=== PATIENT | male | born 1950 | race African-American/Black ===

== ENCOUNTER 2018-06-01 12:57 | Emergency (ER) | payer MEDICARE, OTHER ==
--- NOTE | 2018-06-01 14:19 | ER Document Report ---
ED Medical Screen (RME) - General Chief Complaint: Nose Bleed Stated Complaint: NOSE BLEED Time Seen by Provider: 06/01/18 14:17 Primary Care Provider: CANDACE DE LA CRUZ MD [Primary Care Provider] - Follow up as needed Mode of Arrival: Ambulatory Information source: Patient Notes: 68-year-old male presented to ED for complaint of nosebleed. He states he has had a nosebleed off and on for about 6-8 months but this time it would not stop bleeding on its own. He states he went to his doctor's office for routine physical and they could not get his nosebleeds to stop so they packed his nose and sending to the emergency room. He does have packing in his nose at this point and I did not remove it as I am doing him in the old EKG room trying to triage him. I have ordered some blood work and will have him seen by another provider. He is alert oriented respirations regular and unlabored speaking in full sentences. He denies use of any kind of blood thinners or aspirin. I have greeted and performed a rapid initial assessment of this patient. A comprehensive ED assessment and evaluation of the patient, analysis of test results and completion of medical decision making process will be conducted by an additional ED providers. TRAVEL OUTSIDE OF THE [place] IN LAST 30 DAYS: No - Related Data Allergies/Adverse Reactions: No Known Allergies Allergy (Verified 06/01/18 12:59) Past Medical History - Past Medical History Cardiac Medical History: Reports: Hx Hypercholesterolemia, Hx Hypertension Denies: Hx Coronary Artery Disease, Hx Heart Attack Pulmonary Medical History: Denies: Hx Asthma, Hx Bronchitis, Hx COPD, Hx Pneumonia, Hx Tuberculosis Neurological Medical History: Denies: Hx Cerebrovascular Accident, Hx Seizures Endocrine Medical History: Reports: Hx Diabetes Mellitus Type 2 Musculoskeltal Medical History: Reports Hx Arthritis - Immunizations Hx Diphtheria, Pertussis, Tetanus Vaccination: No Physical Exam - Vital signs Vitals: Temp Pulse Resp BP Pulse Ox 97.8 F 74 14 138/74 H 97 06/01/18 13:08 06/01/18 13:08 06/01/18 13:08 06/01/18 13:08 06/01/18 13:08 Course - Vital Signs Vital signs: Temp Pulse Resp BP Pulse Ox 97.8 F 74 14 138/74 H 97 06/01/18 13:08 06/01/18 13:08 06/01/18 13:08 06/01/18 13:08 06/01/18 13:08 Doctor's Discharge - Discharge Referrals: CANDACE DE LA CRUZ MD [Primary Care Provider] - Follow up as needed
[2018-06-01 15:00] LABS: ABSOLUTE EOSINOPHILS # (AUTO) 0.1 10^3/uL (0.0-0.6); ABSOLUTE LYMPHOCYTES (AUTO) 2.5 10^3/uL (0.5-4.7); ABSOLUTE MONOCYTES (AUTO) 0.4 10^3/uL (0.1-1.4); ABSOLUTE NEUT (AUTO) 4.3 10^3/uL (1.7-8.2); BASOPHILS % (AUTO) 0.6 % (0-2); EOSINOPHILS % (AUTO) 0.8 % (0-6); HEMATOCRIT 40.6 % (37.9-51.0); HEMOGLOBIN 13.1 g/dL (13.5-17.0); LYMPHOCYTES % (AUTO) 34.3 % (13-45); MEAN CORPUSCULAR HEMOGLOBIN 24.1 pg (27.0-33.4); MEAN CORPUSCULAR HGB CONC 32.2 g/dL (32.0-36.0); MEAN CORPUSCULAR VOLUME 75 fl (80-97); MONOCYTES % (AUTO) 5.9 % (3-13); PLATELET COUNT 162 10^3/uL (150-450); RED BLOOD COUNT 5.43 10^6/uL (4.35-5.55); RED CELL DISTRIBUTION WIDTH 15.7 % (11.5-14.0); SEGMENTED NEUTROPHILS % (AUTO) 58.4 % (42-78); TOTAL CELLS COUNTED % (AUTO) 100 %; WHITE BLOOD COUNT 7.4 10^3/uL (4.0-10.5)
[2018-06-01 15:12] LABS: INTERNATIONAL RATION (INR) 0.96; PROTHROMBIN TIME 13.3 SEC (11.4-15.4)
[2018-06-01 15:13] LABS: PARTIAL THROMBOPLASTIN TIME 26.9 SEC (23.5-35.8)
--- NOTE | 2018-06-01 17:24 | ER Document Report ---
ED General - General Chief Complaint: Nose Bleed Stated Complaint: NOSE BLEED Time Seen by Provider: 06/01/18 14:17 Primary Care Provider: CANDACE DE LA CRUZ MD [Primary Care Provider] - Follow up as needed Mode of Arrival: Ambulatory Information source: Patient TRAVEL OUTSIDE OF THE [place] IN LAST 30 DAYS: No - HPI Patient complains to provider of: Intermittent right nostril bleeding Onset: Just prior to arrival Onset/Duration: Sudden Quality of pain: No pain Severity: None Associated symptoms: None Exacerbated by: Denies Relieved by: Denies Similar symptoms previously: No Recently seen / treated by doctor: No Notes: 68-year-old -[place] male coming in today with right-sided nosebleed. He was at his primary care doctor's office today and sneezed and developed bl eeding from his right nostril. He has had intermittent right nostril bleeds for the past several months. He relates a history of having scratched it really hard with 1 of his fingernails in the past and ever since then he has been having recurrent bleeds. Apparently, the bleeding did not stop right away so the doctor packed it and told him to come straight to the emergency department. By the time the patient is being evaluated, he has since removed the packing from his right nostril is not having any bleeding. His blood count is also back and is unremarkable. - Related Data Allergies/Adverse Reactions: No Known Allergies Allergy (Verified 06/01/18 12:59) Past Medical History - General Information source: Patient - Social History Smoking Status: Current Every Day Smoker Chew tobacco use (# tins/day): No Frequency of alcohol use: Rare Drug Abuse: None Family History: Reviewed & Not Pertinent, DM - Mother Patient has suicidal ideation: No Patient has homicidal ideation: No - Past Medical History Cardiac Medical History: Reports: Hx Hypercholesterolemia, Hx Hypertension Denies: Hx Coronary Artery Disease, Hx Heart Attack Pulmonary Medical History: Denies: Hx Asthma, Hx Bronchitis, Hx COPD, Hx Pneumonia, Hx Tuberculosis Neurological Medical History: Reports: Hx Seizures. Denies: Hx Cerebrovascular Accident Endocrine Medical History: Reports: Hx Diabetes Mellitus Type 2 Renal/ Medical History: Reports: Hx Peritoneal Dialysis Musculoskeletal Medical History: Reports Hx Arthritis - Immunizations Hx Diphtheria, Pertussis, Tetanus Vaccination: No Review of Systems - Review of Systems Notes: Constitutional: No fevers. No chills. EENT: No eye redness. No eye pain. No ear pain. No sore throat. Positive for recent epistaxis right nostril Cardiovascular: No chest pain. No palpitations. Respiratory: No cough. No shortness of breath. No respiratory distress. Gastrointestinal: No abdominal pain. No nausea, vomiting, or diarrhea. Genitourinary: Atraumatic. No lesions. No pain. No discharge. Musculoskeletal: Atraumatic. No swelling. No deformities. Skin: No rash or lesions. Lymphatic: No swollen lymph nodes. Neurologic: No headache. No syncope. Psychiatric: No suicidal or homicidal ideation. Physical Exam - Vital signs Vitals: Temp Pulse Resp BP Pulse Ox 97.8 F 74 14 138/74 H 97 06/01/18 13:08 06/01/18 13:08 06/01/18 13:08 06/01/18 13:08 06/01/18 13:08 - Notes Notes: General: Well-developed, well-nourished. In no acute distress. Non-toxic appea ring. Cardiac: Well-perfused. Regular rate and rhythm. No murmurs, rubs, or gallops. Pulmonary: No respiratory distress. No cyanosis. Bilateral lung fiels are clear to auscultation. Abdominal: Non-distended. Non-rigid. Bowels sounds are present in all four quadrants. No guarding or rebound. HEENT: Head is atraumatic. Conjunctivae not reddened. No tearing. PERRL. EOMI. Orbits atraumatic. No periorbital swelling or erythema. Oropharynx is without erythema, swelling, or exudates. Right nostril is not bleeding at this time. No septal hematoma. No evidence of trauma. Neck: Supple. No adenopathy. No meningismus. Dermatologic: Warm with good turgor. No rash. Atraumatic. Chest: Atraumatic. No chest wall tenderness to palpation. Musculoskeletal: Moves all extremities well. No range of motion deficits. no muscular or joint tenderness. No paraspinal muscle tenderness. no midline spinal tenderness or step-off. Genitourinary: Examination deferred Neurologic: No gross neurologic deficits. Psychiatric: Normal mood. Course - Re-evaluation Re-evalutation: 06/01/18 17:22 H&H is stable. No evidence of trauma. Sounds like this is going to be related to having dry membranes in his nose. Recommended Vaseline application to keep it moist and keep it from cracking. Reassured him CBC looks good. He can follow-up with ear nose and throat as an outpatient if he really wants to. - Vital Signs Vital signs: Temp Pulse Resp BP Pulse Ox 97.8 F 74 14 138/74 H 97 06/01/18 13:08 06/01/18 13:08 06/01/18 13:08 06/01/18 13:08 06/01/18 13:08 - Laboratory Result Diagrams: 06/01/18 14:37 Laboratory results interpreted by me: 06/01/18 14:37 Hgb 13.1 L MCV 75 L MCH 24.1 L RDW 15.7 H Discharge - Discharge Clinical Impression: Epistaxis Condition: Good Disposition: HOME, SELF-CARE Instructions: Nosebleed Instructions ([facility]) Additional Instructions: RECommend having a bottle of Afrin at the house to spray in there in case does not stop bleeding. Recommend coating the nostril with Vaseline to keep it from getting too dry. He can follow-up with your primary care doctor or see an firearms model maker if you wish Referrals: CANDACE DE LA CRUZ MD [Primary Care Provider] - Follow up as needed
[2018-06-01 17:54] VITALS: BP 129/86
== END 2018-06-01 17:54 | disposition home or self-care (01) ==
LOC: ER 12:57
DX: R04.0 Epistaxis (principal); F17.200 Nicotine dependence, unspecified, uncomplicated; I10 Essential (primary) hypertension; E11.9 Type 2 diabetes mellitus without complications
CPT/HCPCS: 36415; 85025; 85610; 85730; 99283